=== PATIENT | female | born 1965 | race Hispanic/Latino ===

== ENCOUNTER 2019-08-13 15:32 | Emergency (ER) | payer SELFPAY ==
--- OUTSIDE RECORDS SUMMARY | 2019-08-13 15:55 | XMS REPORT ---
:1965 Author Organization [facility] Address [address] [place] [address] Dr. Camilo [address] [place] [id number] Care Team Providers Name Role Phone Unavailable Unavailable Unavailable Problems This patient has no known problems. Allergies, Adverse Reactions, Alerts This patient has no known allergies or adverse reactions. Medications This patient has no known medications. Encounters Start End Encounter Admission Attending Care Care Encounter Date/Time Date/Time Type Type Clinicians Facility Department ID 2019-01-09 2019-01-09 Emergency E BL [id number] 09:55:00 09:55:00
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
[2019-08-13 18:40] VITALS: BP 184/99; TEMP 98.2; O2SAT 98
== END 2019-08-13 18:26 | disposition home or self-care (01) ==
LOC: ER 15:32
DX: M54.2 Cervicalgia (principal); V43.62XA Car passenger injured in collision with other type car in traffic accident, initial encounter; Z88.6 Allergy status to analgesic agent
CPT/HCPCS: 72125; 99282